=== PATIENT | female | born 1950 | race Two or more races ===

== ENCOUNTER 2019-11-12 13:54 | Inpatient (IN) | payer OTHER ==
[~2019-11-12] VITALS: Ht 165.1 cm; Wt 93.1 kg
[2019-11-12 15:42] LABS: Basophils # (auto) 0 10 ^3/uL (0-0.2); Basophils % (auto) 0.2 % (0.0-2.0); Eosinophils # (auto) 0 10 ^3/uL (0-0.8); Eosinophils % (auto) 0.2 % (0.0-7.0); Hematocrit 40.8 % (36.0-46.0); Hemoglobin 13.6 g/dL (12.2-16.2); Lymphocytes # (auto) 0.6 10 ^3/uL (0.4-5.4); Lymphocytes % (auto) 6.2 % (10.0-50.0); Mean Corpuscular Hemoglobin 30.6 pg (28.0-32.0); Mean Corpuscular Hgb Conc. 33.4 g/dL (32.0-36.0); Mean Corpuscular Volume 91.6 fL (80.0-100.0); Monocytes # (auto) 0.9 10 ^3/uL (0-1.3); Monocytes % (auto) 9.2 % (0.0-12.0); Neutrophils # (auto) 7.8 10 ^3/uL (1.6-8.6); Neutrophils % (auto) 84.2 % (37.0-80.0); Platelet Count (auto) 162 10^3/uL (140-450); Red Blood Cells 4.45 10^6/uL (4.0-5.20); Red Cell Distribution Width 14.2 % (11.8-14.3); White Blood Cell 9.3 10^3/uL (4.4-10.8)
[2019-11-12 16:04] LABS: Albumin 2.5 g/dL (3.4-5.0); BUN/Creatinine Ratio 18.3; Bilirubin, Total 1.1 mg/dL (0.2-1.0); Total Protein 7.1 g/dL (6.4-8.2)
[2019-11-12 16:11] LABS: Potassium 2.9 mmol/L (3.5-5.1)
[2019-11-12 16:15] LABS: Urine Bacteria MANY /hpf (None Seen); Urine Blood 2+ /uL (Negative); Urine Mucus FEW (None Seen); Urine Specific Gravity 1.016 (1.001-1.035); Urine WBC 358 /hpf (0 - 5); Urine WBC Clumps PRESENT /hpf (None Seen)
[2019-11-12] MEDS ORDERED: ONDANSETRON HCL 4 MG/2 ML VIAL IV ONE (16:30)
[2019-11-12] MEDS ORDERED: MORPHINE SULF INJ 2 MG/ML SYRINGE 1ML IV ONE (16:30)
[2019-11-12] MEDS ORDERED: POTASSIUM CHL 20 Meq TABLET PO ONE (17:15)
[2019-11-12] MEDS ORDERED: cefTRIAXone 1GM/50ML D5W 50 ML IV ONE (17:15)
[2019-11-12 17:47] LABS: INR 0.94 (0.9-1.15); Partial Thromboplastin Time 28.2 sec (23.0-31.2)
[2019-11-12] MEDS ORDERED: ENOXAPARIN SOD 80 MG/0.8ML SYRINGE SC ONE (18:15)
[2019-11-12] MEDS ORDERED: METOPROLOL SUCCINATE XL 50 MG TAB PO ONE (18:45)
[2019-11-12] MEDS ORDERED: ASPirin 81 mg TAB PO ONE (18:45)
[2019-11-12] MEDS ORDERED: ATORVASTATIN 20 MG TAB PO ONE (18:45)
[2019-11-12] MEDS ORDERED: POTASSIUM EFFERVESENT TAB 25 MEQ PO ONE (18:45)
[2019-11-12] MEDS ORDERED: MORPHINE SULF INJ 2 MG/ML SYRINGE 1ML IV PRN (19:00)
[2019-11-12] MEDS ORDERED: DEXTROSE (50%) 50ML SYRG IV PRN (19:00)
[2019-11-12] MEDS ORDERED: CLOPIDOGREL 300 MG TAB PO ONE (19:00)
[2019-11-12] MEDS ORDERED: NITROGLYCERIN 0.4 MG SL TAB SL PRN ×2 (19:00)
[2019-11-12] MEDS ORDERED: ONDANSETRON HCL 4 MG/2 ML VIAL IV PRN (19:00)
[2019-11-12] MEDS ORDERED: ALUM & MAG HYDROX-SIMETH LIQ(MAALOX) 30 ML PO PRN (19:00)
[2019-11-12] MEDS ORDERED: MORPHINE SULFATE 4 MG/ML SYR/VIAL IV PRN (19:00)
[2019-11-12] MEDS: SODIUM CHLORIDE 0.9% 1,000 ML IV SCH (20:24)
[2019-11-12] MEDS: POTASSIUM CHL 20MEQ/100ML 100 ML IV SCH ×2 (20:24→22:22)
[2019-11-12] MEDS: InsuLIN REG 1unit/0.01ml Soln (100units/ml) SC SCH (22:33)
[2019-11-12] MEDS: ACCU-CHEK COMFORT CURVE STRIP VI SCH (22:34)
[2019-11-12 23:52] LABS: Amphetamine Screen, Urine NEGATIVE (NEGATIVE); Barbiturate Scree,Urine NEGATIVE (NEGATIVE); Benzodiazephine Screen, Urine NEGATIVE (NEGATIVE); Cannabinoid Screen, Urine NEGATIVE (NEGATIVE); Cocaine Screen, Urine NEGATIVE (NEGATIVE); Opiate Scree,Urine NEGATIVE (NEGATIVE); Phencyclidine Screen, Urine NEGATIVE (NEGATIVE)
--- NOTE | 2019-11-12 23:52 | NUR ---
Critical LAB, Hospitalist paged: Received Critical lab value of 0.650 troponin. Paged hospitalist at this time to notify. Waiting for call back.
--- NOTE | 2019-11-12 23:55 | NUR ---
Telemetry admit from [facility] admitted to Telemetry unit. Patient oriented to Jackie Cruz RN primary RN, unit, room, bed, and unit policies regarding patient care and visiting hours. Patient now on continuous telemetry monitoring, tele box #[id number]. Patient weighed by bedscale and encouraged to call if they need something. All questions and concerns addressed, patient verbalized understanding. Bed is in lowest locked position with bed rails up x 2 and call light is within reach of the patient.
[2019-11-13] MEDS: LORazepam 0.5 MG TAB PO PRN ×2 (00:31→21:55)
--- NOTE | 2019-11-13 00:45 | NUR ---
Hospitalist repaged: Hospitalist repaged to notify of critical troponin lab value. Waiting for call back.
--- NOTE | 2019-11-13 01:00 | NUR ---
Hospitalist called back: Hospitalist called back. Made Hospitalist Herbert aware of critical troponin level. No new orders. Continue care.
[2019-11-13] MEDS ORDERED: INSULIN LANTUS (GLARGINE) 1 /0.01ml (100units/ml) SC ONE (01:30)
[2019-11-13] MEDS ORDERED: DOXYCYCLINE 100MG/250ML 250 ML IV SCH (02:00)
[2019-11-13] MEDS ORDERED: METF-489 PO (02:48)
[2019-11-13 05:00] VITALS: BP 107/54
[2019-11-13 05:30] LABS: Basophils # (auto) 0 10 ^3/uL (0-0.2); Basophils % (auto) 0.3 % (0.0-2.0); Eosinophils # (auto) 0.1 10 ^3/uL (0-0.8); Eosinophils % (auto) 0.6 % (0.0-7.0); Hematocrit 35.8 % (36.0-46.0); Hemoglobin 11.9 g/dL (12.2-16.2); Lymphocytes # (auto) 0.6 10 ^3/uL (0.4-5.4); Lymphocytes % (auto) 6.2 % (10.0-50.0); Mean Corpuscular Hemoglobin 30.1 pg (28.0-32.0); Mean Corpuscular Hgb Conc. 33.1 g/dL (32.0-36.0); Mean Corpuscular Volume 90.9 fL (80.0-100.0); Monocytes # (auto) 0.9 10 ^3/uL (0-1.3); Monocytes % (auto) 9.3 % (0.0-12.0); Neutrophils # (auto) 8.1 10 ^3/uL (1.6-8.6); Neutrophils % (auto) 83.6 % (37.0-80.0); Platelet Count (auto) 171 10^3/uL (140-450); Red Blood Cells 3.94 10^6/uL (4.0-5.20); White Blood Cell 9.7 10^3/uL (4.4-10.8)
[2019-11-13 05:48] LABS: Potassium 3.6 mmol/L (3.5-5.1)
[2019-11-13 05:50] LABS: INR 0.95 (0.9-1.15)
[2019-11-13 05:52] LABS: BUN/Creatinine Ratio 22.1; Bilirubin, Total 0.8 mg/dL (0.2-1.0); Total Protein 5.7 g/dL (6.4-8.2)
[2019-11-13 05:58] LABS: Phosphorus 0.8 mg/dL (2.5-4.90)
[2019-11-13] MEDS ORDERED: FUROSEMIDE 20 MG/2 ML VIAL IV SCH (06:00)
--- NOTE | 2019-11-13 06:00 | NUR ---
Critical labs, Hospitalist paged: Received critical labs of 0.8 phosphorus and 0.651 troponin. Paged hospitalist at this time to report critical labs. Waiting for call back.
[2019-11-13] MEDS: ACCU-CHEK COMFORT CURVE STRIP VI SCH ×4 (06:08→21:56)
--- NOTE | 2019-11-13 06:22 | NUR ---
Hospitalist called back: Hospitalist Herbert called back. Notified of critical lab values and labs this morning. New orders received. To place orders. Addendum: 11/13/19 at 0640 by Jackie Cruz RN RN Hospitalist ordered 12 millimol of Sodium Phosphate IV.
--- NOTE | 2019-11-13 06:36 | NUR ---
Called Pharmacy: Called Pharmacy to fix order. Order from hospitalist was 12 millimol of Sodium Phosphate IV. Pharmacist verbalized understanding and stated that they would fix and input order.
[2019-11-13] MEDS: InsuLIN REG 1unit/0.01ml Soln (100units/ml) SC SCH ×4 (06:45→22:14)
[2019-11-13] MEDS ORDERED: SODIUM PHOSPHATES 12 MEQ in SODIUM CHL 0.9% 100 ML IV ONE (06:45)
[2019-11-13] MEDS ORDERED: SODIUM PHOSPHATES IV ONE (07:00)
[2019-11-13] MEDS ORDERED: SODIUM CHL 0.9% IV ONE (07:00)
[2019-11-13] MEDS: SODIUM CHLORIDE 0.9% 1,000 ML IV SCH ×2 (08:13→22:03)
[2019-11-13 08:52] VITALS: BP 100/55
[2019-11-13] MEDS: AZITHROMYCIN 500MG/ 250ML 250 ML IV SCH (10:00)
[2019-11-13] MEDS: DOCUSATE SOD 100 MG CAP PO SCH (10:00)
[2019-11-13] MEDS ORDERED: ASPirin 81 mg TAB PO SCH (10:00)
[2019-11-13] MEDS: POTASSIUM CHL 20 Meq TABLET PO SCH (10:00)
[2019-11-13] MEDS ORDERED: CEFTRIAXONE SODIUM 2 GM in D5W 5% 50 ML IV SCH (10:00)
[2019-11-13] MEDS ORDERED: METOPROLOL SUCCINATE XL 50 MG TAB PO SCH (10:00)
[2019-11-13] MEDS: LISINOPRIL 5 MG TAB PO SCH (10:00)
[2019-11-13] MEDS: METOPROLOL TARTRATE 25 MG TAB PO SCH ×2 (10:42→21:56)
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
[2019-11-13] MEDS ORDERED: MIDAZOLAM HCL 1MG/1ML-2 ML VIAL ONE (11:42)
[2019-11-13] MEDS ORDERED: fentaNYL CITRATE 100 MCG/2 ML VL ONE (11:42)
[2019-11-13] MEDS ORDERED: SODIUM CHL 0.9% 0 ML ONE (11:42)
[2019-11-13] MEDS ORDERED: LIDOCAINE 2%HCL (LOCAL ANESTH.) INJ 20ML MDV ONE (11:42)
[2019-11-13] MEDS ORDERED: ANGIOMAX 250 MG VIAL IV ONE (11:42)
[2019-11-13] MEDS ORDERED: IOHEXOL 350 MG/ML 100ML IJ ONE (11:42)
--- NOTE | 2019-11-13 13:10 | NUR ---
patient brought back to unit no s/s of distress noted at this time. Patient instructed to lie flat until 1400. Patient verbalzied understanding.
[2019-11-13] MEDS: cefTRIAXone 1GM/50ML D5W 50 ML IV SCH (13:57)
[2019-11-13] MEDS: CLOPIDOGREL BISULFATE 75 MG TAB PO SCH (13:58)
--- NOTE | 2019-11-13 14:30 | NUR ---
PATIENT SITTING UP IN BED. NO S/S OF DISTRESS NOTED AT THIS TIME. PATIENT UPDATED ON POC. BED IN LOWEST LOCKED POSITIN. DRESSING TO R GROIN CLEAN DRY AND INTACT. NO SIGNS OF HEMATOMA FORMATION.
--- NOTE | 2019-11-13 15:22 | NUR ---
assessment Patient is a 69 year old female who is alert and oriented. Per patients daughter in law prior to admission patient was her visiting from [place] where she lives alone. Patient has been here for 4 weeks. Patients PCP is Dr Ruelas at the [facility]. Patient has a cane for home use. I informed Anne I will continue to monitor patient and follow up as appropriate for any post discharge needs. Anne verbalized understanding. Addendum: 11/13/19 at 1526 by Asuncion COLIN Amended: Links added.
--- NOTE | 2019-11-13 15:30 | NUR ---
PATIENT LAYING ON RIGT SIDE. NO S/S OF DISTRESS NOTED AT THIS TIME. BED IN LOWEST LOCKED POSITION. DRESSING TO R GROIN CLEAN DRY AND INTACT. NO SIGNS OF HEMATOMA FORMATION.
[2019-11-13 17:00] VITALS: BP 97/59
--- NOTE | 2019-11-13 17:30 | NUR ---
PATIENT LAYING SUPINE. NO S/S OF DISTRESS NOTED AT THIS TIME. BED IN LOWEST LOCKED POSITION. DRESSING TO R GROIN CLEAN DRY AND INTACT. NO SIGNS OF HEMATOMA FORMATION.
--- NOTE | 2019-11-13 19:50 | NUR ---
Opening Shift Note Assumed care of patient, awake and alert. No S/S of distress/SOB noted. Instructed on POC and to call for assist PRN. Bed is in lowest locked position with bed rails up x2 and call light is within reach of the patient. Dressing to right groin is dry and intact.
[2019-11-13] MEDS: ATORVASTATIN 20 MG TAB PO SCH (21:54)
[2019-11-13 22:00] VITALS: BP 108/57
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
[2019-11-14] MEDS: HYDROcodone-ACET 5/325MG TAB PO PRN ×2 (00:33→06:41)
[2019-11-14 05:00] VITALS: BP 101/49
[2019-11-14] MEDS: ACCU-CHEK COMFORT CURVE STRIP VI SCH ×4 (06:40→21:53)
[2019-11-14] MEDS: InsuLIN REG 1unit/0.01ml Soln (100units/ml) SC SCH ×4 (06:43→21:54)
[2019-11-14 09:14] VITALS: BP 93/53
[2019-11-14] MEDS: DOCUSATE SOD 100 MG CAP PO SCH (09:14)
[2019-11-14] MEDS: CLOPIDOGREL BISULFATE 75 MG TAB PO SCH (09:14)
[2019-11-14] MEDS: POTASSIUM CHL 20 Meq TABLET PO SCH (09:14)
[2019-11-14] MEDS: cefTRIAXone 1GM/50ML D5W 50 ML IV SCH (09:14)
[2019-11-14] MEDS: AZITHROMYCIN 500MG/ 250ML 250 ML IV SCH (09:17)
[2019-11-14] MEDS: LISINOPRIL 5 MG TAB PO SCH (09:17)
[2019-11-14] MEDS: METOPROLOL TARTRATE 25 MG TAB PO SCH ×2 (09:18→21:53)
--- NOTE | 2019-11-14 10:05 | NUR ---
Hospitalist Rounded Dr. Da Silva rounded on patient.
[2019-11-14] MEDS: SODIUM CHLORIDE 0.9% 1,000 ML IV SCH (11:44)
[2019-11-14 12:55] VITALS: BP 104/48
--- NOTE | 2019-11-14 14:30 | NUR ---
IV insertion IV access obtained, via clean sterile technique by inserting 22 gauge catheter at left upper arm after 1 attempt(s). IV secured properly. No trauma to site. Patient tolerated procedure well. IV to right forearm remover with catheter intact and pressure dressing applied.
[2019-11-14 16:38] VITALS: BP 110/74
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
--- NOTE | 2019-11-14 19:50 | NUR ---
Opening Shift Note Assumed care of patient, awake and alert. No S/S of distress/SOB or pain. Instructed on POC and to call for assist PRN. Bed in lowest locked position, call light within reach, side rails up x2, fall precautions in place. Will continue to monitor for changes Q1hr and PRN.
[2019-11-14] MEDS: ATORVASTATIN 20 MG TAB PO SCH (21:53)
[2019-11-14 22:10] VITALS: BP 123/70
[2019-11-15] MEDS: SODIUM CHLORIDE 0.9% 1,000 ML IV SCH ×3 (00:09→21:59)
[2019-11-15] MEDS: LORazepam 0.5 MG TAB PO PRN ×3 (01:14→22:04)
[2019-11-15 05:42] VITALS: BP 117/72
[2019-11-15 06:05] LABS: Hematocrit 35.7 % (36.0-46.0); Hemoglobin 11.9 g/dL (12.2-16.2); Mean Corpuscular Hemoglobin 30.1 pg (28.0-32.0); Mean Corpuscular Hgb Conc. 33.2 g/dL (32.0-36.0); Mean Corpuscular Volume 90.5 fL (80.0-100.0); Platelet Count (auto) 239 10^3/uL (140-450); Red Blood Cells 3.94 10^6/uL (4.0-5.20); White Blood Cell 5.4 10^3/uL (4.4-10.8)
[2019-11-15 06:18] LABS: Band Neutrophils % (manual) 0; Blast Cells 0; Eosinophils % (manual) 0 (0-7); Myelocytes % 0; Promyelocytes % 0; Reactive Lymphocytes 0
[2019-11-15 06:22] LABS: Calcium 8.5 mg/dL (8.5-10.1); Potassium 3.1 mmol/L (3.5-5.1)
[2019-11-15 06:24] LABS: BUN/Creatinine Ratio 11.3
[2019-11-15] MEDS: ACCU-CHEK COMFORT CURVE STRIP VI SCH ×4 (06:49→21:46)
[2019-11-15] MEDS: InsuLIN REG 1unit/0.01ml Soln (100units/ml) SC SCH ×4 (06:50→21:46)
[2019-11-15 07:15] LABS: Basophils % (manual) 2 (0.0-2.0); Lymphocytes % (manual) 19 (10.0-50.0); Metamyelocytes % 2; Monocytes % (manual) 6 (0-12)
--- NOTE | 2019-11-15 07:25 | NUR ---
Opening Shift Note: Assumed care of patient. Patient asleep at this time. No S/S of distress/SOB or pain. Bed in lowest locked position, side rails up x 2, call light within reach. Patient will be instructed on POC and to call for assist PRN, will continue to monitor for changes Q1hr and PRN.
[2019-11-15 09:00] VITALS: BP 120/64
[2019-11-15] MEDS: cefTRIAXone 1GM/50ML D5W 50 ML IV SCH (09:50)
[2019-11-15] MEDS: LISINOPRIL 5 MG TAB PO SCH (09:52)
[2019-11-15] MEDS: CLOPIDOGREL BISULFATE 75 MG TAB PO SCH (09:52)
[2019-11-15] MEDS: POTASSIUM CHL 20 Meq TABLET PO SCH (09:52)
[2019-11-15] MEDS: DOCUSATE SOD 100 MG CAP PO SCH (09:52)
[2019-11-15] MEDS: METOPROLOL TARTRATE 25 MG TAB PO SCH ×2 (09:53→21:59)
[2019-11-15 12:43] VITALS: BP 121/72
--- NOTE | 2019-11-15 12:45 | NUR ---
Nutrition Assessment Notes please see attached link for complete assessment Est energy needs ABW 74 [id number] kcal (23-25 kcal/kg ABW), Est protein needs 74-88 g (1.0-1.2 g/kg). Will reassess prn Addendum: 11/15/19 at [address] Amended: Links added.
[2019-11-15] MEDS ORDERED: IPRATROPIUM BROM 0.5 MG/2.5ML INH SOL NEB PRN (13:45)
[2019-11-15] MEDS ORDERED: ALBUTEROL SULF 2.5 MG/0.5ML(0.5%) NEB SOLN NEB PRN (13:45)
[2019-11-15] MEDS: HYDROcodone-ACET 5/325MG TAB PO PRN ×2 (14:17→22:04)
[2019-11-15 17:02] VITALS: BP 110/61
--- NOTE | 2019-11-15 18:48 | NUR ---
CLOSING NOTE: Patient resting in bed. No S/S of distress at this time. Bed alarm activate for patient safety. Care endorsed to NOC RN.
[2019-11-15 19:28] VITALS: BP 110/61
[2019-11-15] MEDS: ATORVASTATIN 20 MG TAB PO SCH (21:41)
[2019-11-15 22:00] VITALS: BP 116/63
[2019-11-16 05:00] VITALS: BP 136/80
[2019-11-16] MEDS: InsuLIN REG 1unit/0.01ml Soln (100units/ml) SC SCH ×4 (06:24→21:43)
[2019-11-16] MEDS: ACCU-CHEK COMFORT CURVE STRIP VI SCH ×4 (06:26→21:44)
--- NOTE | 2019-11-16 06:26 | NUR ---
PT ASSESSED FOR PRN HHN TX. PT IS ON ROOM AIR, SPO2 99%, HR 101, RR 20. NO S/S OF RESPIRATORY DISTRESS. PRN TX NOT INDICATED AT THIS TIME. WILL CONTINUE TO MONITOR.
--- NOTE | 2019-11-16 07:50 | NUR ---
Opening shift note Assumed care of patient from NOC RN. Patient is AOx4 no s/s of distress or SOB noted. Bed is in lowest locked position, side rails up x2, and call light is within reach. Updated patient on plan of care and patient verbalized understanding. Will continue to monitor.
[2019-11-16 09:00] VITALS: BP 126/59
--- NOTE | 2019-11-16 09:45 | NUR ---
Physician rounding Dr. Montes at bedside. MD updated patient on plan of care and patient verbalized understanding. No new orders received.
[2019-11-16] MEDS: cefTRIAXone 1GM/50ML D5W 50 ML IV SCH (10:44)
[2019-11-16] MEDS: POTASSIUM CHL 20 Meq TABLET PO SCH (10:45)
[2019-11-16] MEDS: CLOPIDOGREL BISULFATE 75 MG TAB PO SCH (10:45)
[2019-11-16] MEDS: DOCUSATE SOD 100 MG CAP PO SCH (10:45)
[2019-11-16] MEDS: METOPROLOL TARTRATE 25 MG TAB PO SCH ×2 (10:49→21:46)
[2019-11-16] MEDS: LISINOPRIL 5 MG TAB PO SCH (10:49)
[2019-11-16] MEDS: MORPHINE SULF INJ 2 MG/ML SYRINGE 1ML IV PRN (10:51)
[2019-11-16 13:00] VITALS: BP 106/58
[2019-11-16] MEDS: SODIUM CHLORIDE 0.9% 1,000 ML IV SCH (16:13)
[2019-11-16 17:00] VITALS: BP 135/90
--- NOTE | 2019-11-16 19:10 | NUR ---
End of shift note Endorsed care to noc RN. No s/s of distress or SOB noted.
--- NOTE | 2019-11-16 19:41 | NUR ---
Respiratory note: ASSESSED PT FOR PRN MED NEB AT THIS TIME, PT SLEEPING AT THIS TIME, NO RESP DISTRESS NOTED, NO TX INDICATED, PULSE OX 97% ON RA, HR 72, RR 18, BILATERAL BS CLEAR.
[2019-11-16] MEDS: LORazepam 0.5 MG TAB PO PRN (21:15)
[2019-11-16] MEDS: ATORVASTATIN 20 MG TAB PO SCH (21:45)
[2019-11-16 22:00] VITALS: BP 133/69
[2019-11-17] MEDS: LORazepam 0.5 MG TAB PO PRN ×2 (02:45→19:56)
[2019-11-17] MEDS: HYDROcodone-ACET 5/325MG TAB PO PRN ×2 (02:45→21:22)
[2019-11-17 05:00] VITALS: BP 145/83
[2019-11-17] MEDS: SODIUM CHLORIDE 0.9% 1,000 ML IV SCH ×2 (05:33→18:53)
[2019-11-17] MEDS: ACCU-CHEK COMFORT CURVE STRIP VI SCH ×4 (06:42→20:06)
[2019-11-17] MEDS: InsuLIN REG 1unit/0.01ml Soln (100units/ml) SC SCH ×4 (06:44→20:05)
--- NOTE | 2019-11-17 08:15 | NUR ---
Opening shift note Assumed care of patient from EULOGIO FOREMAN. Patient is AOx4 no s/s of distress or SOB noted. Bed is in lowest locked position, side rails up x2, and call light is within reach. Updated patient on plan of care and patient verbalized understanding. Will continue to monitor. Addendum: 11/18/19 at 1829 by FABRIZIO WRIGHT RN RN time 0715 am
[2019-11-17 09:00] VITALS: BP 141/82
--- NOTE | 2019-11-17 09:11 | NUR ---
Respiratory note: PRN MEDNEB CHECK. PT AWAKE ALERT AND RESPONSIVE. PT FOUND ON ROOM AIR. HR 72, RR 18 SP02 98%. PT IN NO DISTRESS AT THIS TIME B/S ARE DIMINISHED. NO TX INDICATED AT THIS TIME. PT AWARE TO HAVE RT PAGED IF SOB.
[2019-11-17] MEDS: DOCUSATE SOD 100 MG CAP PO SCH (10:05)
[2019-11-17] MEDS: CLOPIDOGREL BISULFATE 75 MG TAB PO SCH (10:05)
[2019-11-17] MEDS: POTASSIUM CHL 20 Meq TABLET PO SCH (10:05)
[2019-11-17] MEDS: METOPROLOL TARTRATE 25 MG TAB PO SCH ×2 (10:06→22:36)
[2019-11-17] MEDS: cefTRIAXone 1GM/50ML D5W 50 ML IV SCH (10:06)
[2019-11-17] MEDS: LISINOPRIL 5 MG TAB PO SCH (10:06)
[2019-11-17 13:00] VITALS: BP 119/59
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
--- NOTE | 2019-11-17 13:49 | NUR ---
Spoke with family Spoke with patients daughter in law Anne. Password was set by patient and verified by family. Family updated on POC for the day and D/C plans for 11/18/2019. All questions and concerns addressed. Will continue care.
--- NOTE | 2019-11-17 16:30 | NUR ---
Faxed to [facility] for [facility] [phone]
[2019-11-17 17:00] VITALS: BP 120/70
--- NOTE | 2019-11-17 18:15 | NUR ---
Communication Patient requesting juice at this time to have dinner with. Patient educated on diabetic diet and was informed that she can not get an additional carton of juice as this RN had recently given her an apple juice. Patient visibly upset requesting to speak to charge nurse. Charge nurse has been made aware. Will continue care.
[2019-11-17] MEDS: MORPHINE SULF INJ 2 MG/ML SYRINGE 1ML IV PRN (19:57)
[2019-11-17] MEDS: ATORVASTATIN 20 MG TAB PO SCH (21:23)
[2019-11-17 22:00] VITALS: BP 132/79
--- NOTE | 2019-11-17 23:10 | NUR ---
Patients behavior: Patient calling multiple times despite reinforcing diabetic diet. Patient non-compliant with diabetic diet. Explained that she needs to wait until this nurse check her blood sugar then I can give her snack however as soon as I turn my back she was on the call light again asking for food. Blood sugar was checked and I gave her sandwich and cranberry juice. After 30 minutes she is calling again that is needs food. Patient does not stop calling until she gets food. Given anxiety medication and pain medication. Patient not teachable, uncooperative to education.
[2019-11-18] MEDS: MORPHINE SULF INJ 2 MG/ML SYRINGE 1ML IV PRN (00:11)
[2019-11-18] MEDS: HYDROcodone-ACET 5/325MG TAB PO PRN (00:59)
[2019-11-18 05:00] VITALS: BP 128/75
[2019-11-18] MEDS: ACCU-CHEK COMFORT CURVE STRIP VI SCH ×3 (06:19→17:00)
[2019-11-18] MEDS: InsuLIN REG 1unit/0.01ml Soln (100units/ml) SC SCH ×3 (06:33→17:00)
--- NOTE | 2019-11-18 06:44 | NUR ---
RESPIRATORY NOTE: HR 74, RR 16, SPO2 98% ON RA, BS CLEAR AND DIMINISHED. PRN MED NEB TX NOT INDICATED AT THIS TIME.NO SIGNS OR SYMPTOMS OF RESPIRATORY DISTRESS NOTED.
[2019-11-18] MEDS: SODIUM CHLORIDE 0.9% 1,000 ML IV SCH (08:13)
[2019-11-18 09:00] VITALS: BP 139/81
--- NOTE | 2019-11-18 09:45 | NUR ---
Pt refused PT tx stating she is going home and her legs hurt too much to get up and move around. Addendum: 11/18/19 at 1154 by Linwood Barron AUTOCUTTER Amended: Links added.
[2019-11-18] MEDS: cefTRIAXone 1GM/50ML D5W 50 ML IV SCH (10:39)
[2019-11-18] MEDS: DOCUSATE SOD 100 MG CAP PO SCH (10:39)
[2019-11-18] MEDS: METOPROLOL TARTRATE 25 MG TAB PO SCH (10:41)
[2019-11-18] MEDS: CLOPIDOGREL BISULFATE 75 MG TAB PO SCH (10:42)
[2019-11-18] MEDS: LISINOPRIL 5 MG TAB PO SCH (10:42)
[2019-11-18] MEDS ORDERED: CEPH-37 PO (11:02)
[2019-11-18] MEDS ORDERED: ATOR20TA50 PO (11:02)
[2019-11-18] MEDS ORDERED: CLOP75TA28 PO (11:02)
[2019-11-18] MEDS ORDERED: MET25T PO (11:02)
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
[2019-11-18 13:00] VITALS: BP 134/81
--- NOTE | 2019-11-18 13:07 | NUR ---
Contacted [facility] @ [phone] and requested update on the HomeHealth. Per Kathryn they did receive the order and will reach out to pt within 24hrs to setup Homehealth visit. Pt. Enmanuel to DC. 11/17 @ 11.39am
--- NOTE | 2019-11-18 17:50 | NUR ---
Discharge instructions given as ordered to patient and to Anne daughter in law/next of kin over the phone. Encouraged to follow up with [facility] as instructed. All questions and concerns addressed. Patient verbalized understanding. IV removed with catheter intact, pressure dressing applied, bardales catheter removed. Telemetry unit returned to ICU. Patient taken to vehicle via wheelchair with all personal belongings, accompanied by Darlyn machuca. No distress noted at time of departure.
== END 2019-11-18 17:50 | disposition home health service (06) | DRG 281 ==
LOC: ER 13:54 → EDBD 13:54 → TELE 13:55 → TELE-WESTW 23:16
PROVIDERS: ADMIT Hospitalist; ATTEND Internal Medicine Pulmonary Disease
PROC: 4A023N7 Measurement of Cardiac Sampling and Pressure, Left Heart, Percutaneous Approach (ICD-10-PCS; principal; 2019-11-13)
PROC: B2111ZZ Fluoroscopy of Multiple Coronary Arteries using Low Osmolar Contrast (ICD-10-PCS; 2019-11-13)
PROC: B2151ZZ Fluoroscopy of Left Heart using Low Osmolar Contrast (ICD-10-PCS; 2019-11-13)
DX: I21.4 Non-ST elevation (NSTEMI) myocardial infarction (principal); N39.0 Urinary tract infection, site not specified; E87.1 Hypo-osmolality and hyponatremia; N17.9 Acute kidney failure, unspecified; E87.6 Hypokalemia; E83.39 Other disorders of phosphorus metabolism; E66.3 Overweight; E78.1 Pure hyperglyceridemia; Z20.828 Contact with and (suspected) exposure to other viral communicable diseases; E11.40 Type 2 diabetes mellitus with diabetic neuropathy, unspecified; E78.5 Hyperlipidemia, unspecified; D64.9 Anemia, unspecified; Z82.49 Family history of ischemic heart disease and other diseases of the circulatory system; Z83.3 Family history of diabetes mellitus; Z87.11 Personal history of peptic ulcer disease; Z79.4 Long term (current) use of insulin; Z88.6 Allergy status to analgesic agent; Z68.34 Body mass index [BMI] 34.0-34.9, adult; I10 Essential (primary) hypertension
CPT/HCPCS: 36415; 71046; 80048; 80053; 80061; 80307; 81001; 82962; 83036; 83735; 83880; 84100; 84443; 84484; 85007; 85025; 85027; 85610; 85730; 86850; 86870; 86900; 86901; 87040; 87086; 87088; 87186; 87426; 93005; 93458; 96361; 96365; 96375; 97163; 99152; G0378; J0696; J1815; J2250; J2405; J3480; J7060

== ENCOUNTER 2021-12-27 15:46 | Emergency (ER) | payer OTHER, MEDICAID ==
[~2021-12-27] VITALS: Ht 157.5 cm; Wt 95.0 kg
[~2021-12-27 15:46] MED LIST: ATOR20TA50 PO; CEPH-37 PO; CLOP75TA28 PO; MET25T PO; METF-489 PO
[2021-12-27 17:33] LABS: Basophils # (auto) 0 10 ^3/uL (0-0.2); Basophils % (auto) 0.6 % (0.0-2.0); Eosinophils # (auto) 0.3 10 ^3/uL (0-0.8); Eosinophils % (auto) 5.3 % (0.0-7.0); Hematocrit 42.6 % (36.0-46.0); Hemoglobin 14.3 g/dL (12.2-16.2); Lymphocytes # (auto) 1.6 10 ^3/uL (0.4-5.4); Lymphocytes % (auto) 25.4 % (10.0-50.0); Mean Corpuscular Hemoglobin 29.6 pg (28.0-32.0); Mean Corpuscular Hgb Conc. 33.4 g/dL (32.0-36.0); Mean Corpuscular Volume 88.5 fL (80.0-100.0); Monocytes # (auto) 0.4 10 ^3/uL (0-1.3); Monocytes % (auto) 6.6 % (0.0-12.0); Neutrophils % (auto) 62.1 % (37.0-80.0); Red Blood Cells 4.82 10^6/uL (4.0-5.20); Red Cell Distribution Width 13.3 % (11.8-14.3); White Blood Cell 6.5 10^3/uL (4.4-10.8)
[2021-12-27 17:52] LABS: Albumin 3.8 g/dL (3.4-5.0); BUN/Creatinine Ratio 19.8; Calcium 9.2 mg/dL (8.5-10.1); Potassium 4.7 mmol/L (3.5-5.1)
[2021-12-27 17:54] LABS: Bilirubin, Total 0.6 mg/dL (0.2-1.0); Total Protein 7.1 g/dL (6.4-8.2)
[2021-12-27 21:22] VITALS: BP 136/88
== END 2021-12-27 20:27 | disposition home or self-care (01) ==
LOC: ER 15:46 → EDBD 15:46 → ER 20:27
DX: R07.89 Other chest pain (principal); F41.9 Anxiety disorder, unspecified; I10 Essential (primary) hypertension; E11.9 Type 2 diabetes mellitus without complications; E78.5 Hyperlipidemia, unspecified; Z79.01 Long term (current) use of anticoagulants; Z79.899 Other long term (current) drug therapy; Z88.6 Allergy status to analgesic agent
CPT/HCPCS: 36415; 71045; 80053; 82962; 83880; 84484; 85025; 93005

== ENCOUNTER 2022-01-05 10:31 | Emergency (ER) | payer OTHER, MEDICAID ==
[~2022-01-05] VITALS: Ht 170.2 cm; Wt 70.2 kg
[2022-01-05 11:10] VITALS: BP 176/81
[2022-01-05 11:28] LABS: Basophils # (auto) 0.1 10 ^3/uL (0-0.2); Basophils % (auto) 1.3 % (0.0-2.0); Eosinophils # (auto) 0.3 10 ^3/uL (0-0.8); Hematocrit 40.5 % (36.0-46.0); Hemoglobin 13.3 g/dL (12.2-16.2); Lymphocytes # (auto) 1.1 10 ^3/uL (0.4-5.4); Lymphocytes % (auto) 25.4 % (10.0-50.0); Mean Corpuscular Hemoglobin 29.2 pg (28.0-32.0); Mean Corpuscular Hgb Conc. 32.8 g/dL (32.0-36.0); Mean Corpuscular Volume 88.8 fL (80.0-100.0); Monocytes # (auto) 0.4 10 ^3/uL (0-1.3); Monocytes % (auto) 8.8 % (0.0-12.0); Neutrophils # (auto) 2.6 10 ^3/uL (1.6-8.6); Neutrophils % (auto) 58.5 % (37.0-80.0); Nucleated Red Blood Cells % 0.2 %; Red Blood Cells 4.56 10^6/uL (4.0-5.20); Red Cell Distribution Width 13.4 % (11.8-14.3); White Blood Cell 4.5 10^3/uL (4.4-10.8)
[2022-01-05 11:45] LABS: Albumin 3.4 g/dL (3.4-5.0); Calcium 8.6 mg/dL (8.5-10.1); Potassium 4.4 mmol/L (3.5-5.1)
[2022-01-05 13:09] LABS: BUN/Creatinine Ratio 27.6; Bilirubin, Total 0.4 mg/dL (0.2-1.0); Total Protein 6.4 g/dL (6.4-8.2)
== END 2022-01-05 17:06 | disposition home or self-care (01) ==
LOC: ER 10:31 → EDBD 10:31 → ER 17:06
DX: S00.33XA Contusion of nose, initial encounter (principal); E11.9 Type 2 diabetes mellitus without complications; E78.5 Hyperlipidemia, unspecified; I10 Essential (primary) hypertension; Z88.6 Allergy status to analgesic agent; W18.09XA Striking against other object with subsequent fall, initial encounter; Y93.89 Activity, other specified; Y92.89 Other specified places as the place of occurrence of the external cause; Y99.8 Other external cause status
CPT/HCPCS: 36415; 70450; 70486; 71250; 72125; 74176; 80053; 84484; 85025; 93005

== ENCOUNTER 2022-07-10 09:56 | Emergency (ER) | payer OTHER, MEDICAID ==
[~2022-07-10] VITALS: Ht 165.1 cm; Wt 63.0 kg
[2022-07-10] MEDS ORDERED: SODIUM CHLORIDE 0.9% 1,000 ML IV ONE (11:15)
[2022-07-10] MEDS ORDERED: SODIUM CHLORIDE 0.9% 1,000 ML IVB ONE (11:15)
[2022-07-10 11:58] LABS: Hematocrit 29.4 % (36.0-46.0); Hemoglobin 9.7 g/dL (12.2-16.2); Mean Corpuscular Hemoglobin 30.3 pg (28.0-32.0); Mean Corpuscular Hgb Conc. 33.2 g/dL (32.0-36.0); Mean Corpuscular Volume 91.3 fL (80.0-100.0); Red Blood Cells 3.22 10^6/uL (4.0-5.20); Red Cell Distribution Width 14.6 % (11.8-14.3); White Blood Cell 10.2 10^3/uL (4.4-10.8)
[2022-07-10 12:04] LABS: Basophils % (manual) 0 (0.0-2.0); Blast Cells 0; Eosinophils % (manual) 0 (0-7); Metamyelocytes % 0; Myelocytes % 0; Promyelocytes % 0; Reactive Lymphocytes 0
[2022-07-10 12:21] LABS: Albumin 2.6 g/dL (3.4-5.0); Anion Gap 4 (5-15); Aspartate Aminotransferase 50 U/L (15-37); BUN/Creatinine Ratio 26.7 (10.0-20.0); Blood Alcohol < 3.0 mg/dL (0-5); Blood Urea Nitrogen 24 mg/dL (7-18); Calcium 8.2 mg/dL (8.5-10.1); Carbon Dioxide 22 mmol/L (21-32); Chloride 108 mmol/L (98-107); GFR African American 79 mL/min; GFR Non-African American 66 mL/min; Glucose 198 mg/dL (74-106); Potassium 4.4 mmol/L (3.5-5.1); Sodium 134 mmol/L (136-145)
[2022-07-10 12:24] LABS: Alanine Aminotransferase 20 U/L (13-56); Alkaline Phosphatase 73 U/L (45-117); Bilirubin, Total 0.2 mg/dL (0.2-1.0); Total Protein 5.7 g/dL (6.4-8.2)
[2022-07-10] MEDS ORDERED: CLINDAMYCIN 600MG IV 50 ML IV ONE (12:30)
[2022-07-10] MEDS ORDERED: PIPERACILLIN-TAZOB 3.375GM 100 ML IV ONE (12:30)
[2022-07-10 16:22] LABS: Band Neutrophils % (manual) 2; Lymphocytes % (manual) 9 (10.0-50.0); Monocytes % (manual) 3 (0-12)
[2022-07-10 16:35] LABS: Urine Bacteria NONE SEEN /hpf (None Seen); Urine Blood Negative /uL (Negative); Urine Specific Gravity 1.014 (1.001-1.035); Urine WBC <1 /hpf (0 - 5)
[2022-07-10] MEDS ORDERED: HYDROcodone-ACET 5/325MG TAB PO ONE (16:45)
[2022-07-10 17:02] LABS: Amphetamine Screen, Urine NEGATIVE (NEGATIVE); Barbiturate Scree,Urine NEGATIVE (NEGATIVE); Benzodiazephine Screen, Urine NEGATIVE (NEGATIVE); Cannabinoid Screen, Urine NEGATIVE (NEGATIVE); Cocaine Screen, Urine NEGATIVE (NEGATIVE); Opiate Scree,Urine NEGATIVE (NEGATIVE); Phencyclidine Screen, Urine NEGATIVE (NEGATIVE)
[2022-07-10 19:08] VITALS: BP 102/43
== END 2022-07-10 19:25 | disposition short-term general hospital (02) ==
LOC: EDBD 09:56 → ER 09:56 → EDUNIT# 09:56 → ER 19:25
DX: G93.41 Metabolic encephalopathy (principal); R07.89 Other chest pain; M79.672 Pain in left foot; I10 Essential (primary) hypertension; E11.9 Type 2 diabetes mellitus without complications; E78.5 Hyperlipidemia, unspecified; Z79.01 Long term (current) use of anticoagulants; Z79.899 Other long term (current) drug therapy; Z88.6 Allergy status to analgesic agent; Z20.822 Contact with and (suspected) exposure to COVID-19
CPT/HCPCS: 36415; 70450; 71045; 73700; 80053; 80307; 80320; 81001; 82962; 83605; 84484; 85007; 85027; 87040; 87426; 96365; 96366; 99291; J2543

== ENCOUNTER 2022-12-10 15:47 | Emergency (ER) | payer MEDICAID, OTHER ==
[~2022-12-10] VITALS: Ht 152.4 cm; Wt 50.0 kg
[2022-12-10] MEDS ORDERED: SODIUM CHLORIDE 0.9% 500 ML IVB ONE (16:15)
[2022-12-10 16:26] LABS: Basophils # (auto) 0 10 ^3/uL (0-0.2); Basophils % (auto) 0.4 % (0.0-2.0); Eosinophils # (auto) 0 10 ^3/uL (0-0.8); Eosinophils % (auto) 0.1 % (0.0-7.0); Hematocrit 36.4 % (36.0-46.0); Hemoglobin 12.1 g/dL (12.2-16.2); Lymphocytes # (auto) 1.2 10 ^3/uL (0.4-5.4); Lymphocytes % (auto) 15.8 % (10.0-50.0); Mean Corpuscular Hemoglobin 29.3 pg (28.0-32.0); Mean Corpuscular Hgb Conc. 33.3 g/dL (32.0-36.0); Mean Corpuscular Volume 88.2 fL (80.0-100.0); Monocytes # (auto) 0.6 10 ^3/uL (0-1.3); Monocytes % (auto) 8.3 % (0.0-12.0); Neutrophils # (auto) 5.9 10 ^3/uL (1.6-8.6); Neutrophils % (auto) 75.4 % (37.0-80.0); Nucleated Red Blood Cells % 0.4 %; Red Blood Cells 4.12 10^6/uL (4.0-5.20); Red Cell Distribution Width 15.1 % (11.8-14.3); White Blood Cell 7.8 10^3/uL (4.4-10.8)
[2022-12-10 17:05] LABS: Albumin 3.2 g/dL (3.2-4.8); Alkaline Phosphatase 80 U/L (46-116); Anion Gap 19 (5-15); Aspartate Aminotransferase 29 U/L (13-40); Bilirubin, Total 0.8 mg/dL (0.2-1.0); Blood Urea Nitrogen 16 mg/dL (9-23); Calcium 8.8 mg/dL (8.7-10.4); Carbon Dioxide 15 mmol/L (20-30); Chloride 102 mmol/L (98-107); Glucose 179 mg/dL (74-106); Magnesium 1.4 mg/dL (1.6-2.6); Potassium 3.8 mmol/L (3.5-5.1); Sodium 136 mmol/L (136-145); Total Protein 6.1 g/dL (5.7-8.2)
[2022-12-10 17:39] LABS: Alanine Aminotransferase < 9 U/L (7-40)
[2022-12-10] MEDS ORDERED: levoFLOXacin 500MG 100 ML IV ONE (18:30)
[2022-12-10] MEDS ORDERED: cefTRIAXone 1GM/50ML D5W 50 ML IV ONE (18:30)
[2022-12-10] MEDS ORDERED: SODIUM CHLORIDE 0.9% 1,500 ML IV ONE (18:30)
[2022-12-10 18:48] VITALS: PULSE 104; RESP 16; O2SAT 100
[2022-12-11] MEDS ORDERED: ACETAMINOPHEN 325 MG TAB PO ONE (02:00)
[2022-12-11 02:09] VITALS: BP 110/66; PULSE 96; RESP 15; TEMP 97.2; O2SAT 98
== END 2022-12-11 02:30 | disposition short-term general hospital (02) ==
LOC: EDBD 15:47 → ER 15:47
DX: R55 Syncope and collapse (principal); I95.9 Hypotension, unspecified; R74.02 Elevation of levels of lactic acid dehydrogenase [LDH]; E11.9 Type 2 diabetes mellitus without complications; E78.5 Hyperlipidemia, unspecified; I10 Essential (primary) hypertension; Z79.82 Long term (current) use of aspirin; Z79.899 Other long term (current) drug therapy
CPT/HCPCS: 36415; 70450; 71045; 80053; 83605; 83735; 84484; 85025; 87040; 93005; 96361; 96365; 96368; 99285; J0696; J1956; J7030